=== PATIENT | male | born 1980 | race Caucasian/White ===

== ENCOUNTER 2019-10-24 11:25 | Emergency (ER) | payer OTHER, SELFPAY ==
[2019-10-24 13:25] LABS: Absolute Lymphocytes (CBC) 1.8 K/uL (0.7-4.9); Basophils % 0.4 % (0-1.3); Hematocrit 47.2 % (39.6-49.0); Lymphocytes % 15.2 % (15.3-44.8); MPV 8.6 fL (7.6-11.3); RBC Red Blood Cell Count 4.95 M/uL (4.33-5.43)
[2019-10-24 13:41] LABS: Albumin 4.1 g/dL (3.4-5.0); Bilirubin Direct 0.2 mg/dL (0-0.2); Bilirubin Total 1.2 mg/dL (0.2-1.0); Potassium 4.3 mmol/L (3.5-5.1); Protein, Total 7.9 g/dL (6.4-8.2)
--- NOTE | 2019-10-24 13:54 | RAD REPORT ---
EXAM DESCRIPTION: CT - Abdomen Pelvis W Contrast - 10/24/2019 1:34 pm CLINICAL HISTORY: Abdominal pain COMPARISON: 2013 TECHNIQUE: Computed axial tomography of the abdomen pelvis was obtained. 100 cc Isovue-300 was admin istered intravenously. Oral contrast was not requested which limits evaluation of bowel. All CT scans are performed using dose optimization technique as appropriate and may include automated exposure control or mA/KV adjustment according to patient size. FINDINGS: The liver, spleen, pancreas, adrenal and kidneys appear unremarkable. There is no evidence of diverticulitis.Normal appendix 2 centimeter area of narrowing sigmoid colon. Additional areas of narrowing involving the sigmoid col on likely spasm IMPRESSION: 2 millimeter area of narrowing involving the sigmoid colon may be secondary to spasm or mass. Further evaluation with either endoscopy or follow-up CT imaging recommended
--- NOTE | 2019-10-24 14:27 | ER ---
Nurse's Notes [facility] Name: Gary Zepeda Age: 39 yrs Sex: Male : 1980 Arrival Date: 10/24/2019 Time: 11:28 Bed 15 Private MD: Diagnosis: Other abdominal pain-left side abdomen Presentation: 10/23 11:35 Chief complaint: Patient states: abd pain x 2 days. BM x1 this morning with blood. ss Coronavirus screen: Proceed with normal triage. Patient denies a cough. Patient denies shortness of breath or difficulty breathing. Patient denies measured and/or subjective temperature greater than 100.4F prior to today's visit. Patient denies travel on a cruise ship or to a country the [facility] currently lists as an affected area. Patient denies contact with known and/or suspected case of COVID-19. Ebola Screen: Patient denies exposure to infectious person. Patient denies travel to an Ebola-affected area in the 21 days before illness onset. Initial Sepsis Screen: Does the patient meet any 2 criteria? No. Patient's initial sepsis screen is negative. Does the patient have a suspected source of infection? No. Patient's initial sepsis screen is negative. Risk Assessment: Do you want to hurt yourself or someone else? Patient reports no desire to harm self or others. Onset of symptoms was October 22, 2019. 11:35 Method Of Arrival: Ambulatory 11:35 Acuity: SAMSON 3 ss Historical: - Allergies: 11:38 Augmentin; ss - Home Meds: 11:38 None [Active]; ss - PMHx: 11:38 None; ss - PSHx: 11:38 None; ss - Immunization history:: Adult Immunizations up to date. - Social history:: Smoking status: Patient reports the use of cigarette tobacco products, smokes one-half pack cigarettes per day. Screenin:47 Abuse screen: Denies threats or abuse. Nutritional screening: No deficits noted. tw2 Tuberculosis screening: No symptoms or risk factors identified. Fall Risk None identified. Assessment: 12:36 General: Appears in no apparent distress. slender, well groomed, Behavior is calm, tw2 cooperative, appropriate for age. Pain: Denies pain. Neuro: Level of Consciousness is awake, alert, obeys commands, Oriented to person, place, time, situation. Cardiovascular: Heart tones S1 S2 Patient's skin is warm and dry. Respiratory: Respiratory: Airway is patent Respiratory effort is even, unlabored, Respiratory pattern is regular, symmetrical, Breath sounds are clear bilaterally. GI: Abdomen is flat, Bowel sounds present X 4 quads. Abd is soft and non tender X 4 quads. Reports bloody stool, "i really think i ate something bad Tuesday and i just have this burning like in my stomach" Patient currently denies intolerance of fluids, intolerance of food, nausea. : No signs and/or symptoms were reported regarding the genitourinary system. EENT: No signs and/or symptoms were reported regarding the EENT system. Derm: No signs and/or symptoms reported regarding the dermatologic system. Musculoskeletal: Capillary refill < 3 seconds, Range of motion: intact in all extremities. 13:46 Reassessment: Patient appears in no apparent distress at this time. No changes from tw2 previously documented assessment. Patient and/or family updated on plan of care and expected duration. Pain level reassessed. Patient is alert, oriented x 3, equal unlabored respirations, skin warm/dry/pink. 15:39 Reassessment: Patient appears in no apparent distress at this time. No changes from tw2 previously documented assessment. Patient and/or family updated on plan of care and expected duration. Pain level reassessed. Patient is alert, oriented x 3, equal unlabored respirations, skin warm/dry/pink. pt tolerated PO fluids well, denies n/v/d at this time, states "im just ready to get outta here". Vital Signs: 11:38 BP 129 / 93; Pulse 104; Resp 17; Temp 98.9(TE); Pulse Ox 99% on R/A; Weight 83.91 kg; ss Height 5 ft. 9 in. (175.26 cm); Pain 2/10; 12:35 BP 128 / 82; Pulse 100; Resp 18; Pulse Ox 99% on R/A; tw2 13:46 BP 139 / 82; Pulse 85; Resp 17; Pulse Ox 100% on R/A; tw2 14:30 BP 122 / 87; Pulse 79; Resp 17; Pulse Ox 98% on R/A; tw2 15:30 BP 118 / 80; Pulse 79; Resp 16; Pulse Ox 100% on R/A; tw2 11:38 Body Mass Index 27.32 (83.91 kg, 175.26 cm) ED Course: 11:28 Patient arrived in ED. as 11:37 Triage completed. ss 11:38 Arm band placed on left wrist. ss 12:28 Bed in low position. Call light in reach. tw2 12:30 Charles Mckinley PA is PHCP. cp 12:30 Charles Guerrero MD is Attending Physician. cp 13:03 Rosy Escalante RN is Primary Nurse. tw2 13:34 CT Abd/Pelvis - IV Contrast Only In Process Unspecified. EDMS 14:26 Mickey Baer MD is Referral Physician. cp 14:34 Awaiting: completion of IV fluids and IV abx PRIOR to discharge. tw2 14:34 Inserted saline lock: 20 gauge in left antecubital area, using aseptic technique. Blood tw2 collected. 15:40 No provider procedures requiring assistance completed. IV discontinued, intact, tw2 bleeding controlled, No redness/swelling at site. Pressure dressing applied. Administered Medications: 14:34 Drug: NS 0.9% 1000 ml Route: IV; Rate: 1 bolus; Site: left antecubital; tw2 15:38 Follow up: Response: No adverse reaction; IV Status: Completed infusion; IV Intake: tw2 1000ml 14:34 Drug: metroNIDAZOLE 500 mg Volume: 100 ml; Route: IVPB; Infused Over: 30 mins; Site: tw2 left antecubital; 15:06 Follow up: Response: No adverse reaction; IV Status: Completed infusion tw2 14:34 Drug: Ciprofloxacin 500 mg Route: PO; tw2 15:39 Follow up: Response: No adverse reaction tw2 Intake: 15:38 IV: 1000ml; Total: 1000ml. tw2 Outcome: 14:27 Discharge ordered by . cp 15:40 Discharged to home ambulatory. tw2 15:40 Condition: stable 15:40 Discharge instructions given to patient, Instructed on discharge instructions, follow up and referral plans. no drinking with medication, no driving heavy equipment, medication usage, Demonstrated understanding of instructions, follow-up care, medications, Prescriptions given X 4. 15:43 Patient left the ED. tw2 Signatures: Dispatcher [employer] EDVT Raysa Andres Shelby, RN RN Charles Mckinley PA PA cp Rosy Escalante, RN RN tw2
--- NOTE | 2019-10-24 14:27 | EDPHYS ---
Physician Documentation [facility] Name: Gary Zepeda Age: 39 yrs Sex: Male : 1980 Arrival Date: 10/24/2019 Time: 11:28 Bed 15 Private MD: NATALI Physician Charles Guerrero HPI: 10/23 12:45 This 39 yrs old Male presents to ER via Ambulatory with complaints of Rectal cp Bleeding, Abdominal Pain. 12:45 The patient presents with abdominal pain in the left upper quadrant, in the left lower cp quadrant. 12:45 Onset: The symptoms/episode began/occurred 2 day(s) ago. The symptoms do not radiate. cp Associated signs and symptoms: Pertinent positives: blood in stool times 1 bowel movement, Pertinent negatives: nausea and vomiting. The symptoms are described as achy. Historical: - Allergies: 11:38 Augmentin; ss - Home Meds: 11:38 None [Active]; ss - PMHx: 11:38 None; ss - PSHx: 11:38 None; ss - Immunization history:: Adult Immunizations up to date. - Social history:: Smoking status: Patient reports the use of cigarette tobacco products, smokes one-half pack cigarettes per day. ROS: 13:00 Constitutional: Negative for body aches, chills, fever, poor PO intake. cp 13:00 Eyes: Negative for injury, pain, redness, and discharge. cp 13:00 ENT: Negative for ear pain, sore throat, difficulty swallowing, difficulty handling secretions. 13:00 Cardiovascular: Negative for chest pain, edema, palpitations. 13:00 Respiratory: Negative for cough, shortness of breath, wheezing. 13:00 Abdomen/GI: Positive for abdominal pain, blood in stool, Negative for vomiting, diarrhea, constipation, anorexia. 13:00 Skin: Negative for rash. 13:00 Neuro: Negative for altered mental status, headache, syncope, weakness. 13:00 All other systems are negative. Exam: 13:05 Constitutional: The patient appears in no acute distress, alert, awake, non-toxic, well cp developed, well nourished. 13:05 Head/Face: Normocephalic, atraumatic. cp 13:05 Eyes: Periorbital structures: appear normal, Conjunctiva: normal, no exudate, no injection, Sclera: no appreciated abnormality, Lids and lashes: appear normal, bilaterally. 13:05 ENT: External ear(s): are unremarkable, Nose: is normal, Mouth: Posterior pharynx: is normal, airway is patent, no erythema, no exudate. 13:05 Chest/axilla: Inspection: normal, Palpation: is normal, no crepitus, no tenderness. 13:05 Cardiovascular: Rate: tachycardic, Rhythm: regular. 13:05 Respiratory: the patient does not display signs of respiratory distress, Respirations: normal, no use of accessory muscles, no retractions, labored breathing, is not present, Breath sounds: are clear throughout, no decreased breath sounds, no stridor, no wheezing. 13:05 Abdomen/GI: Inspection: abdomen appears normal, Bowel sounds: active, all quadrants, Palpation: soft, in all quadrants, mild abdominal tenderness, in the left upper quadrant and left lower quadrant, rebound tenderness, is not appreciated, voluntary guarding, is not appreciated, involuntary guarding, is not appreciated. 13:05 Back: pain, is absent, ROM is normal. Vital Signs: 11:38 BP 129 / 93; Pulse 104; Resp 17; Temp 98.9(TE); Pulse Ox 99% on R/A; Weight 83.91 kg; ss Height 5 ft. 9 in. (175.26 cm); Pain 2/10; 12:35 BP 128 / 82; Pulse 100; Resp 18; Pulse Ox 99% on R/A; tw2 13:46 BP 139 / 82; Pulse 85; Resp 17; Pulse Ox 100% on R/A; tw2 14:30 BP 122 / 87; Pulse 79; Resp 17; Pulse Ox 98% on R/A; tw2 15:30 BP 118 / 80; Pulse 79; Resp 16; Pulse Ox 100% on R/A; tw2 11:38 Body Mass Index 27.32 (83.91 kg, 175.26 cm) ss MDM: 12:31 Patient medically screened. cp 13:00 Differential diagnosis: GI Bleed, diverticulitis, colitis. cp 14:26 Data reviewed: vital signs, nurses notes, lab test result(s), radiologic studies, CT cp scan, and as a result, I will discharge patient. 14:26 Counseling: I had a detailed discussion with the patient and/or guardian regarding: the cp historical points, exam findings, and any diagnostic results supporting the discharge/admit diagnosis, lab results, radiology results, the need for outpatient follow up, a technical document writer, to return to the emergency department if symptoms worsen or persist or if there are any questions or concerns that arise at home. Special discussion: Based on the patient's Hx, exam, and Dx evaluation, there is no indication for emergent surgery or inpatient Tx. It is understood by the patient/guardian that if the Sx's persist or worsen they need to return immediately for re-evaluation. ED course: VSS. Pain improved with meds. H/H stable. Will discharge to home for continued monitoring. 10/23 12:37 Order name: Basic Metabolic Panel; Complete Time: 14:07 10/23 14:07 Interpretation: Normal except: CL 109; GFR 76. cp 10/23 12:37 Order name: CBC with Diff; Complete Time: 14:07 cp 10/23 14:08 Interpretation: Normal except: WBC 12.1; BRICE% 75.3; LYM% 15.2; NEUT A 9.1. cp 10/23 12:37 Order name: Hepatic Function; Complete Time: 14:07 cp 10/23 14:08 Interpretation: Normal except: BILIT 1.2; GLOB 3.8. cp 10/23 12:37 Order name: Lipase; Complete Time: 14:07 cp 10/23 13:59 Order name: CREATININE WHOLE BLOOD; Complete Time: 14:07 EDMS 10/23 12:37 Order name: IV Saline Lock; Complete Time: 14:34 cp 10/23 12:37 Order name: Labs collected and sent; Complete Time: 14:34 cp 10/23 12:37 Order name: CT Abd/Pelvis - IV Contrast Only; Complete Time: 14:07 cp 10/23 14:18 Order name: PO challenge; Complete Time: 15:39 cp Administered Medications: 14:34 Drug: NS 0.9% 1000 ml Route: IV; Rate: 1 bolus; Site: left antecubital; tw2 15:38 Follow up: Response: No adverse reaction; IV Status: Completed infusion; IV Intake: tw2 1000ml 14:34 Drug: metroNIDAZOLE 500 mg Volume: 100 ml; Route: IVPB; Infused Over: 30 mins; Site: tw2 left antecubital; 15:06 Follow up: Response: No adverse reaction; IV Status: Completed infusion tw2 14:34 Drug: Ciprofloxacin 500 mg Route: PO; tw2 15:39 Follow up: Response: No adverse reaction tw2 Disposition: 10/24 13:25 Co-signature as Attending Physician, Cahrles Guerrero MD I agree with the assessment and trisha plan of care. Disposition: 10/24/19 14:27 Discharged to Home. Impression: Other abdominal pain - left side abdomen. - Condition is Stable. - Discharge Instructions: Abdominal Pain, Adult. - Prescriptions for Bentyl 20 mg Oral Tablet - take 1 tablet by ORAL route every 6 hours As needed; 20 tablet. Cipro 500 mg Oral Tablet - take 1 tablet by ORAL route every 12 hours for 10 days; 20 tablet. Metronidazole 500 mg Oral Tablet - take 1 tablet by ORAL route every 8 hours; 30 tablet. Zofran 4 mg Oral Tablet - take 1 tablet by ORAL route every 12 hours As needed; 20 tablet. - Medication Reconciliation Form, Thank You Letter, Antibiotic Education, Prescription Opioid Use, Work release form form. - Follow up: Mickey Baer MD; When: 1 - 2 days; Reason: Recheck today's complaints. - Problem is new. - Symptoms have improved. Signatures: Dispatcher [employer] EDKS Charles Guerrero MD MD cha Smirch, Shelby RN RN Charles Mckinley PA PA cp Wise, Tara, RN RN tw2 Corrections: (The following items were deleted from the chart) 10/23 15:43 14:27 10/24/2019 14:27 Discharged to Home. Impression: Other abdominal pain - left side tw2 abdomen. Condition is Stable. Forms are Medication Reconciliation Form, Thank You Letter, Antibiotic Education, Prescription Opioid Use. Follow up: Mickey Baer; When: 1 - 2 days; Reason: Recheck today's complaints. Problem is new. Symptoms have improved. cp
[2019-10-24] MEDS ORDERED: CIPROFLOXACIN HCL 500 MG TAB ONE (14:34)
[2019-10-24] MEDS ORDERED: NA CHLORIDE 0.9% 1,000 ML ONE (14:34)
[2019-10-24] MEDS ORDERED: METRONIDAZOLE 500mg IVPB 500 MG/100 ML BAG IV ONE (14:34)
[2019-10-24 16:17] VITALS: TEMP 98.9
[2019-10-24 16:20] VITALS: BP 139/82; O2SAT 100
== END 2019-10-24 15:43 | disposition home or self-care (01) ==
LOC: ER 11:25
DX: R10.9 Unspecified abdominal pain (principal); K92.1 Melena; F17.210 Nicotine dependence, cigarettes, uncomplicated
CPT/HCPCS: 36415; 74177; 80048; 80076; 82565; 83690; 85025; 96361; 96365; 99284; J7030; Q9967

== ENCOUNTER → 2023-07-14 | Emergency (ER) | payer SELFPAY ==
[~2023-07-14] MED LIST: KETOROLAC 30 MG/ML INJ ONE; MORPHINE 4 MG/ML SYR ONE; NA CHLORIDE 0.9% 1,000 ML ONE; PANTOPRAZOLE 40MG TABLET PO ONE
--- NOTE | 2023-07-14 13:21 | RAD REPORT ---
EXAM DESCRIPTION: US - Scrotum Testicles - 07/14/2023 12:50 pm CLINICAL HISTORY: scrotal mass COMPARISON: No comparisons TECHNIQUE: Sonographic grayscale and color flow images of the scrotum were obtained. FINDINGS: The right testicle measures 4.0 x 3.0 x 2.0 cm. No intratesticular masses or evidence of t esticular torsion. The left testicle measures 3.8 x 2.0 x 2.8 cm. No intratesticular masses or evidence of testicular to rsion. Both epididymides are normal in size and appearance apart from a left epididymal head 9 mm cyst. Small to moderate left hydrocele corresponds to the palpable abnormality. IMPRESSION: Small to moderate left hydrocele. Left epididymal head 9 mm cyst may represent a spermat ocele. Both findings underlying the area of palpable abnormality. No other testicular sonographic abnormalities.
[2023-07-14 14:09] LABS: Absolute Basophils 0.1 K/uL (0-0.5); Absolute Lymphocytes (CBC) 2.3 K/uL (0.7-4.9); Basophils % 0.8 % (0-1.3); Hematocrit 44.9 % (39.6-49.0); Lymphocytes % 32.4 % (15.3-44.8); MCV 91.6 fL (80-100); MPV 7.9 fL (7.6-11.3); Platelets 303 thou/uL (152-406)
[2023-07-14 14:19] LABS: Albumin 4.1 g/dL (3.4-5.0); Albumin/Globulin Ratio 1.1 (1.1-1.8); Anion Gap 9.9 mEq/L (5.0-15.0); Potassium 3.9 mEq/L (3.5-5.1); Protein, Total 7.9 g/dL (6.4-8.2)
[2023-07-14 15:36] LABS: Specific Gravity > 1.030 (1.005-1.030); Urine Bacteria None Seen /HPF (<20); Urine Bilirubin NEGATIVE (Negative); Urine Blood Negative (Negative); Urine Clarity Clear (Clear); Urine Color Yellow (Yellow); Urine Glucose NEGATIVE (Negative); Urine Mucus 2+ /HPF (None Seen); Urine Protein TRACE (Negative); Urine RBC <5 /HPF (None Seen); Urine Urobilinogen Normal (Normal); Urine pH 5.5 (5.0-7.0)
--- NOTE | 2023-07-14 15:49 | ER ---
Nurse's Notes [facility] Name: Gary Zepeda Age: 43 yrs Sex: Male : 1980 Arrival Date: 07/14/2023 Time: 12:10 Bed 10 Private MD: Diagnosis: Spermatocele Presentation: 07/13 12:57 Coronavirus screen: Vaccine status: Patient reports receiving the 2nd dose of the covid kd3 vaccine. Ebola Screen: No symptoms or risks identified at this time. Initial Sepsis Screen: Does the patient meet any 2 criteria? No. Patient's initial sepsis screen is negative. Does the patient have a suspected source of infection? No. Patient's initial sepsis screen is negative. Risk Assessment: Do you want to hurt yourself or someone else? Patient reports no desire to harm self or others. Onset of symptoms was July 14, 2023. 12:57 Method Of Arrival: Ambulatory kd3 12:57 Acuity: SAMSON 3 kd3 12:58 Chief complaint: Patient states: I have had left testicular pain for two days. The pain kd3 is excruciating. There is a lump right above the testicle on the left side. Triage Assessment: 12:58 General: Appears uncomfortable, Behavior is calm, cooperative. Pain: Complains of pain kd3 in pelvis. Historical: - Allergies: 12:57 Augmentin; kd3 - PMHx: 13:35 None; rs5 - PSHx: 13:35 None; rs5 - Immunization history:: Adult Immunizations up to date. - Social history:: Smoking status: Reported history of juuling and/or vaping. Screenin:32 [facility] ED Fall Risk Assessment (Adult) History of falling in the last 3 months, rs5 including since admission No falls in past 3 months (0 pts) Confusion or Disorientation No (0 pts) Intoxicated or Sedated No (0 pts) Impaired Gait No (0 pts) Mobility Assist Device Used No (0 pt) Altered Elimination No (0 pt) Score/Fall Risk Level 0 - 2 = Low Risk Oriented to surroundings, Maintained a safe environment. 13:32 Abuse screen: Denies threats or abuse. Nutritional screening: No deficits noted. rs5 Tuberculosis screening: No symptoms or risk factors identified. Assessment: 13:35 Reassessment: Pt arrived room. rs5 13:40 General: Appears in no apparent distress. uncomfortable, Behavior is calm, cooperative. rs5 Pain: Complains of pain in scrotumn Pain currently is 9 out of 10 on a pain scale. Quality of pain is described as aching, Is continuous. Neuro: Level of Consciousness is awake, alert, obeys commands, Oriented to person, place, time, situation. Cardiovascular: Patient's skin is warm and dry. Rhythm is regular. Respiratory: Airway is patent Respiratory effort is even, unlabored, Respiratory pattern is regular, symmetrical. GI: Abdomen is round non-distended, Abd is soft and non tender X 4 quads. : Reports pain scrotum, testicle, Denies burning with urination, discharge, inability to void, incontinence. EENT: No signs and/or symptoms were reported regarding the EENT system. Derm: Skin is intact, Skin is pink, warm \T\ dry. Musculoskeletal: Range of motion: intact in all extremities. 14:31 Reassessment: Patient and/or family updated on plan of care and expected duration. Pain rs5 level reassessed. Patient is alert, oriented x 3, equal unlabored respirations, skin warm/dry/pink. Patient denies pain at this time. Patient states feeling better. Patient states symptoms have improved. 15:45 Reassessment: No changes from previously documented assessment. rs5 16:01 Reassessment: Patient denies pain at this time. Patient states feeling better. Patient rs5 states symptoms have improved. Vital Signs: 12:56 BP 126 / 81; Pulse 100; Resp 17; Temp 98(O); Pulse Ox 98% ; Weight 81.65 kg; Height 5 kd3 ft. 8 in. ; Pain 10/10; 14:31 BP 130 / 82; Pulse 80; Resp 18; Pulse Ox 99% on R/A; rs5 16:10 BP 133 / 83; Pulse 83; Resp 17; Pulse Ox 99% on R/A; rs5 12:56 Body Mass Index 27.37 (81.65 kg, 172.72 cm) kd3 12:56 Pain Scale: Adult kd3 ED Course: 12:14 Patient arrived in ED. im 12:16 Carlyle Holland MD is Attending Physician. ec2 12:52 US Scrotum Testicles In Process Unspecified. EDMS 12:57 Triage completed. kd3 12:58 Arm band placed on left wrist. kd3 13:32 Patient has correct armband on for positive identification. Placed in gown. Bed in low rs5 position. Call light in reach. Side rails up X2. 13:32 No provider procedures requiring assistance completed. rs5 13:34 Inserted saline lock: 20 gauge in left antecubital area, using aseptic technique. Blood rs5 collected. 14:38 Gil Amaya, RN is Primary Nurse. rs5 15:21 [facility] Sent. bc6 15:49 Ulysses Simmons MD is Referral Physician. ec2 16:15 IV discontinued, intact, bleeding controlled, No redness/swelling at site. Pressure rs5 dressing applied. Administered Medications: 14:04 Drug: NS 0.9% IV 1000 ml IV at 1 bolus Per protocol; 1000 mL bolus Route: IV; Rate: 1 rs5 bolus; Site: left antecubital; 14:20 Follow up: Response: No adverse reaction rs5 14:04 Drug: Ketorolac IVP 15 mg IVP once Route: IVP; Site: left antecubital; rs5 14:25 Follow up: Response: No adverse reaction; Pain is decreased rs5 14:04 Drug: morphine IVP or IV 4 mg IVP once over 4 mins Route: IVP; Infused Over: 4 mins; rs5 Site: left antecubital; 14:22 Follow up: Response: No adverse reaction rs5 14:40 Drug: Pantoprazole PO 80 mg PO once Route: PO; rs5 15:02 Follow up: Response: No adverse reaction rs5 Medication: 16:00 VIS not applicable for this client. rs5 Outcome: 15:49 Discharge ordered by . ec2 16:15 Discharged to home ambulatory, rs5 16:15 Condition: stable 16:15 Discharge instructions given to patient, family, Instructed on discharge instructions, follow up and referral plans. medication usage, Demonstrated understanding of instructions, follow-up care, medications, Prescriptions given X 1, 16:19 Patient left the ED. rs5 Signatures: Dispatcher [employer] Haylie Lai RN RN kd3 Gil Amaya, OPAL JOSEPH rs5 Nicole Roy 6 Maria Luisa Strauss Edwin, MD MD ec2 Corrections: (The following items were deleted from the chart) 14:30 13:01 General: Appears rs5 rs5 17:03 15:29 Reassessment: Patient denies pain at this time. Patient states feeling better. rs5 Patient states symptoms have improved. rs5
--- NOTE | 2023-07-14 15:49 | EDPHYS ---
Physician Documentation [facility] Name: Gary Zepeda Age: 43 yrs Sex: Male : 1980 Arrival Date: 07/14/2023 Time: 12:10 Bed 10 Private MD: ED Physician Carlyle Holland HPI: 07/13 13:26 This 43 yrs old Male presents to ER via Ambulatory with complaints of ec2 Testicular Pain, Testicular Problem - Lump on left testicle. 13:26 Patient arrives today for evaluation of left testicular pain. Complaining of swelling ec2 to the area. Patient reports no trauma or injury, denies any penile discharge.. Historical: - Allergies: 12:57 Augmentin; kd3 - PMHx: 13:35 None; rs5 - PSHx: 13:35 None; rs5 - Immunization history:: Adult Immunizations up to date. - Social history:: Smoking status: Reported history of juuling and/or vaping. ROS: 13:26 Constitutional: as per hpi ec2 Exam: 13:26 Constitutional: GEN: NAD Head: atraumatic Eyes: EOMI Ears: External ears are ec2 normal. CV: regular rate LUNGS: no respiratory distress ABD: non-distended. : Left epididymal swelling and TTP, scrotum without erythema or crepitus appreciated. Cremasteric intact reflex. SKIN: no evidence of rashes MSK: no evidence of trauma NEURO: moves all extremities equally Vital Signs: 12:56 BP 126 / 81; Pulse 100; Resp 17; Temp 98(O); Pulse Ox 98% ; Weight 81.65 kg; Height 5 kd3 ft. 8 in. ; Pain 10/10; 14:31 BP 130 / 82; Pulse 80; Resp 18; Pulse Ox 99% on R/A; rs5 16:10 BP 133 / 83; Pulse 83; Resp 17; Pulse Ox 99% on R/A; rs5 12:56 Body Mass Index 27.37 (81.65 kg, 172.72 cm) kd3 12:56 Pain Scale: Adult kd3 MDM: 12:44 Patient medically screened. ec2 13:25 ED course: Patient arrives today for evaluation of left testicular swelling. ec2 Complaining of pain. Examination remarkable for well-appearing nontoxic dividual with intact cremasteric reflex, no significant erythema or warmth or discharge, TTP to the epididymal head.Ultrasound shows small left hydrocele along with epididymal cyst. I suspect this is the cause of the patient's discomfort. Patient follow-up outpatient for this. . 13:27 Data reviewed: vital signs. ec2 14:28 ED course: CBC and metabolic profile reassuring.. ec2 15:48 ED course: Urine noninfectious appearing. Will discharge home. Return precautions ec2 given. Presentation consistent with spermatocele.. 07/13 12:24 Order name: UAM; Complete Time: 15:48 ec2 07/13 13:03 Order name: CBC with Diff; Complete Time: 14:28 ec2 07/13 13:03 Order name: CMP; Complete Time: 14:28 ec2 07/13 12:24 Order name: US Scrotum Testicles; Complete Time: 13:23 ec2 07/13 14:29 Order name: Misc. Order: Get urine; Complete Time: 14:38 ec2 Administered Medications: 14:04 Drug: NS 0.9% IV 1000 ml IV at 1 bolus Per protocol; 1000 mL bolus Route: IV; Rate: 1 rs5 bolus; Site: left antecubital; 14:20 Follow up: Response: No adverse reaction rs5 14:04 Drug: Ketorolac IVP 15 mg IVP once Route: IVP; Site: left antecubital; rs5 14:25 Follow up: Response: No adverse reaction; Pain is decreased rs5 14:04 Drug: morphine IVP or IV 4 mg IVP once over 4 mins Route: IVP; Infused Over: 4 mins; rs5 Site: left antecubital; 14:22 Follow up: Response: No adverse reaction rs5 14:40 Drug: Pantoprazole PO 80 mg PO once Route: PO; rs5 15:02 Follow up: Response: No adverse reaction rs5 Disposition Summary: 07/14/23 15:49 Discharge Ordered Notes: Location: Home ec2 Problem: new ec2 Symptoms: have improved ec2 Condition: Stable ec2 Diagnosis - Spermatocele ec2 Followup: ec2 - With: Private Physician - When: - Reason: Re-evaluation by your physician Followup: ec2 - With: Ulysses Simmons MD - When: - Reason: Recheck today's complaints Discharge Instructions: - Discharge Summary Sheet ec2 - Spermatocele ec2 Forms: - Medication Reconciliation Form ec2 - Thank You Letter ec2 - Antibiotic Education ec2 - Prescription Opioid Use ec2 - Patient Portal Instructions ec2 - Leadership Thank You Letter ec2 Prescriptions: - acetaminophen-codeine 300-15 mg Oral tablet - take 1 tablet ORAL route 2 times per day; 20 tablet; Refills: 0, Product ec2 Selection Permitted Signatures: Dispatcher [employer] Haylie Lai RN RN kd3 Gil Amaya RN RN rs5 Carlyle Holland MD MD ec2
[2023-07-14 16:57] VITALS: BP 130/82; TEMP 98; O2SAT 99
== END ==
LOC: ER 12:10
DX: N43.41 Spermatocele of epididymis, single (principal)
CPT/HCPCS: 36415; 76870; 80053; 81001; 85025; 96374; 96375; 99284; J7030